=== PATIENT | female | born 1955 | race Caucasian/White ===

== ENCOUNTER → 2016-11-02 | Outpatient (CLI) | payer BC ==
[~2016-11-02] MED LIST: ACET-749 PO; ALBUAER2 INH; ATOR-22 PO; ATOR10TA82 PO; ATV/1 PO; BUDE180I INH; CETI10TA84 PO; CHOL100010 PO; CLB200 PO; CYAN100T PO; CYAN500T13 PO; CYCL15CA PO; GABA1CAP PO; GLUC250C PO; KETO1AER EXT; KETO2SHA TOP; LEVO112T4 PO; LEVO125T5 PO; LUTE15CA PO; LUTE6CAP9 PO; MIRT45TA PO; MIRT45TA3 PO; MISCCAP80 PO; MONT1TAB3 PO; NF656; NF656 EXT; OMEG1CAP81 PO; RMRS/15 PO; SNG10 PO; TURM1CAP4 PO; VITAMIN D PO; VNTHFA/IN INH
--- NOTE | 2016-11-03 12:48 | MAMMOGRAPHY REPORT ---
BILATERAL DIGITAL SCREENING MAMMOGRAM TOMOSYNTHESIS WITH CAD: 11/02/2016 CLINICAL HISTORY: Routine screening. Patient has no complaints. TECHNIQUE: Breast tomosynthesis in addition to standard 2D mammography was performed. Current study was also evaluated with a Computer Aided Detection (CAD) system. COMPARISON: Comparison is made to exams dated: 10/21/2015 mammogram, 10/12/2013 mammogram, 10/15/2014 mammogram, 08/11/2012 mammogram, 10/06/2011 ultrasound, and 10/06/2011 mammogram - [facility]. BREAST COMPOSITION: The tissue of both breasts is heterogeneously dense, which may obscure small ma sses. FINDINGS: There is a stable benign rim calcification within the right breast. No new suspicious mas s, architectural distortion or cluster of microcalcifications is seen. IMPRESSION: ACR BI-RADS CATEGORY 1: NEGATIVE There is no mammographic evidence of malignancy. A 1 year screening mammogram is recommended. The p atient will receive written notification of the results. Approximately 10% of breast cancers are not detected with mammography. A negative mammographic repor t should not delay biopsy if a clinically suggestive mass is present. Zabrina Baker M.D. ay/:11/02/2016 17:30:21 Dental Receptionist: Amber VILLALOBOS(R)(M), [facility] letter sent: Normal 1/2 BI-RADS Code: ACR BI-RADS Category 1: Negative
== END | disposition home or self-care (01) ==
LOC: C.MAMM 15:06
PROVIDERS: ATTEND Obstetrics & Gynecology
DX: Z12.31 Encounter for screening mammogram for malignant neoplasm of breast (principal)

== ENCOUNTER → 2017-01-27 | Outpatient (CLI) | payer BC ==
[~2017-01-27] MED LIST changes: -ALBUAER2 INH; -ATOR10TA82 PO; -ATV/1 PO; -CHOL100010 PO; -CYAN100T PO; -KETO2SHA TOP; -LEVO112T4 PO; +LEVO125T4 PO; -LEVO125T5 PO; -LUTE6CAP9 PO; -MIRT45TA3 PO; -NF656; -SNG10 PO
--- NOTE | 2017-01-27 12:54 | DIAGNOSTIC IMAGING REPORT ---
C-SPINE ROUTINE 4 OR 5 VIEWS CLINICAL HISTORY: Right arm numbness. COMPARISON STUDY: Cervical spine radiographs June 16, 2016. FINDINGS: Reversal of normal cervical lordosis is unchanged exam of June 16, 2016. A C5-C6 posterior fusion is unchanged. Hardware is intact. There is no acute cervical spine fracture. Craniocervical junction is intact. There is moderate multilevel degenerative disc disease and facet arthrosis. IMPRESSION: 1. No cervical spine fracture. 2. No change in appearance of the cervical spine since exam June 16, 2016 status post C5-C6 posterior fusion. Electronically signed by: Dario Landin M.D. 01/27/2017 12:52 PM Dictated Date/Time: 01/27/2017 12:47 PM
== END | disposition home or self-care (01) ==
LOC: C.LAB 12:15
PROVIDERS: ATTEND Internal Medicine
DX: R20.2 Paresthesia of skin (principal); Z98.1 Arthrodesis status

== ENCOUNTER → 2017-02-02 | Day surgery (SDC) | payer BC ==
[2017-01-21 10:24] VITALS: BMI 26.0
[~2017-02-02] VITALS: Ht 170.2 cm; Wt 76.8 kg
[~2017-02-02] MED LIST changes: +LIDOCAINE HCL 2% 2 ML VIAL (20MG/ML) ONE; +PROPOFOL IV EMULSION 10 MG/ML 20 ML VIAL IV ONE; +SODIUM CHLORIDE 0.9% 500ML 500 ML IV ONE
[2017-02-02 13:50] VITALS: Ht 170.2 cm; Wt 76.8 kg
--- NOTE | 2017-02-02 14:06 | Endo History and Physical ---
History & Physical Date of Service: Feb 02, 2017. Chief Complaint: Screening Referring Physician: Dr. Montgomery History of Present Illness 61 yo CF who presents for screening colonoscopy. Past Surgical History Hx Cardiac Surgery: No Hx Internal Defibrillator: No Hx Pacemaker: No Hx Abdominal Surgery: Yes (RAYA BSO, LAP BRET, LAPAROSCOPY X 4) Hx of Implantable Prosthesis: No Hx Post-Op Nausea and Vomiting: Yes Hx Cancer Surgery: Yes (EXCISION OF MELANOMA X2) Hx Thoracic Surgery: No Hx Orthopedic: Yes (CERVICAL FUSION) Hx Urinary Tract Surgery: No Family History Colon CA Social History Smoking Status: Never Smoker Hx Substance Use: Yes (SEE MED REC) Hx Alcohol Use: Yes (RARELY) Allergies Coded Allergies: Adhesives (Verified Allergy, Unknown, RASH, 01/21/17) Animal Dander (Verified Allergy, Unknown, HAY FEVER, 01/21/17) Duck Feathers (Verified Allergy, Unknown, HAY FEVER WITH DOWN FILLED ITEMS , 01/21/17) Dust (Verified Allergy, Unknown, HAY FEVER, 01/21/17) Molds and Smuts (Verified Allergy, Unknown, HAY FEVER, 12/11/15) Nickel (Verified Allergy, Unknown, RASH, 01/21/17) Penicillins (Verified Allergy, Unknown, RASH, 01/21/17) Clarithromycin (Verified Adverse Reaction, Unknown, GI UPSET, 01/21/17) Current Medications Reported Home Medications Medications Dose Route/Sig Max Daily Dose Days Date Category Ketodan (Ketoconazole (Topical)) 2 % Aer 1 Dose EXT DIRECTED PRN 01/21/17 Reported Lidoderm Patch 5% (Lidocaine) 1 Ea Tdsy 1 Dose EXT DIRECTED PRN 01/21/17 Reported Ventolin Hfa (Albuterol) 200 Puffs/19215 Mcg Aers 2-4 Puffs INH Q6H PRN 01/21/17 Reported Pulmicort Flexhaler (Budesonide (Inhalation)) 180 Mcg/Act Inh 2 Puffs INH BID PRN 30 01/21/17 Reported Tylenol W/Codeine #3 (Acetaminophen/Codeine Phosphate) 300 Mg/30 Mg Tab 1 Tab PO HS PRN 01/21/17 Reported Lipitor (Atorvastatin Calcium) 20 Mg Tab 20 Mg PO QPM 01/21/17 Reported Levothyroxine Sodium 125 Mcg Tab 1 Tab PO QPM 90 01/21/17 Reported Remeron (Mirtazapine) 45 Mg Tab 1 Tab PO HS 30 01/21/17 Reported Zyrtec (Cetirizine HCl) 10 Mg Tab 10 Mg PO QPM 01/21/17 Reported Singulair (Montelukast Sodium) 10 Mg Tab 10 Mg PO QPM 01/21/17 Reported Probiotic (Probiotic Product) 1 Cap Cap 1 Cap PO QAM 01/21/17 Reported [Vitamin D] 1 Tab PO 3XWK 01/21/17 Reported Vitamin B12 500MCG (Cyanocobalamin) 500 Mcg Tab 500 Mcg PO QAM 01/21/17 Reported Lutein (Lutein-Zeaxanthin) 1 Cap Cap 1 Cap PO QAM 01/21/17 Reported Turmeric (Turmeric (Curcuma Longa)) 500 Mg Cap 1 Cap PO QAM 01/21/17 Reported Fish Oil ([place]-3 Fatty Acids) 1 Cap Cap 1 Cap PO QAM 01/21/17 Reported Amrix (Cyclobenzaprine Hcl) 15 Mg Cap 1 Cap PO QPM 01/21/17 Reported Glucosamine/Chondroitin (Glucosamine-Chondroitin) 1 Cap Cap 1 Cap PO QAM 12/04/15 Reported Neurontin (Gabapentin) 100 Mg Cap 100 Mg PO TID 04/22/14 Reported Celebrex * (Celecoxib) 200 Mg Cap 200 Mg PO QAM 01/07/07 Reported Vital Signs Weight (Kilograms): 76.82 Height (Feet): 5 Height (Inches): 7 Date Time Temp Pulse Resp B/P (MAP) Pulse Ox O2 Delivery O2 Flow Rate FiO2 02/02/17 13:55 36.6 85 20 123/73 (90) 100 Room Air Physical Exam General Appearance: WD/WN, no apparent distress Respiratory/Chest: Auscultation: breath sounds normal Cardiovascular: Heart Auscultation: RRR Abdomen: Bowel Sounds: normal Inspection & Palpation: soft, non-distended, no tenderness, guarding & rebound Assessment and Plan Assessment: 61 yo CF who presents for screening colonoscopy. Plan: Proceed with colonoscopy.
--- NOTE | 2017-02-02 14:45 | GI REPORT ---
Procedure Date: 02/02/2017 2:20 PM Procedure: Colonoscopy Indications: Screening for colorectal malignant neoplasm Medicines: Monitored Anesthesia Care Complications: No immediate complications. Estimated Blood Loss: Estimated blood loss: none. Procedure: Pre-Anesthesia Assessment: - Prior to the procedure, a History and Physical was performed, and patient medications and allergies were reviewed. The patient's tolerance of previous anesthesia was also reviewed. The risks and benefits of the procedure and the sedation options and risks were discussed with the patient. All questions were answered, and informed consent was obtained. Prior Anticoagulants: The patient has taken no previous anticoagulant or antiplatelet agents. ASA Grade Assessment: II - A patient with mild systemic disease. After reviewing the risks and benefits, the patient was deemed in satisfactory condition to undergo the procedure. After I obtained informed consent, the scope was passed under direct vision. Throughout the procedure, the patient's blood pressure, pulse, and oxygen saturations were monitored continuously. The Scope was introduced through the anus and advanced to the terminal ileum. The colonoscopy was performed without difficulty. The patient tolerated the procedure well. The quality of the bowel preparation was good. The terminal ileum, ileocecal valve, appendiceal orifice, and rectum were photographed. Findings: The colon (entire examined portion) appeared normal. Impression: - The entire examined colon is normal. - No specimens collected. Recommendation: - Resume previous diet. - Continue present medications. - Repeat colonoscopy in 10 years for surveillance. - Return to primary care physician as previously scheduled. Franklyn Solo DO 02/02/2017 2:44:57 PM This report has been signed electronically. Note Initiated On: 02/02/2017 2:20 PM I attest to the content of the Intraoperative Record and orders documented therein, exceptions below
--- NOTE | 2017-02-02 14:47 | Discharge Instructions ---
Endoscopy Patient Instructions Date / Procedure(s) Performed Feb 02, 2017. Colonoscopy Allergy Information Coded Allergies: Adhesives (Verified Allergy, Unknown, RASH, 01/21/17) Animal Dander (Verified Allergy, Unknown, HAY FEVER, 01/21/17) Duck Feathers (Verified Allergy, Unknown, HAY FEVER WITH DOWN FILLED ITEMS , 01/21/17) Dust (Verified Allergy, Unknown, HAY FEVER, 01/21/17) Molds and Smuts (Verified Allergy, Unknown, HAY FEVER, 12/11/15) Nickel (Verified Allergy, Unknown, RASH, 01/21/17) Penicillins (Verified Allergy, Unknown, RASH, 01/21/17) Clarithromycin (Verified Adverse Reaction, Unknown, GI UPSET, 01/21/17) Discharge Date / Findings Feb 02, 2017. Normal colonoscopy Medication Instructions OK to resume all medications today as prescribed Reported Home Medications Medications Dose Route/Sig Max Daily Dose Days Date Category Mirtazapine 15 Mg Annalisa 30 PO DAILY 02/02/17 Reported Ketodan (Ketoconazole (Topical)) 2 % Aer 1 Dose EXT DIRECTED PRN 01/21/17 Reported Lidoderm Patch 5% (Lidocaine) 1 Ea Tdsy 1 Dose EXT DIRECTED PRN 01/21/17 Reported Ventolin Hfa (Albuterol) 200 Puffs/22390 Mcg Aers 2-4 Puffs INH Q6H PRN 01/21/17 Reported Pulmicort Flexhaler (Budesonide (Inhalation)) 180 Mcg/Act Inh 2 Puffs INH BID PRN 30 01/21/17 Reported Tylenol W/Codeine #3 (Acetaminophen/Codeine Phosphate) 300 Mg/30 Mg Tab 1 Tab PO HS PRN 01/21/17 Reported Lipitor (Atorvastatin Calcium) 20 Mg Tab 20 Mg PO QPM 01/21/17 Reported Levothyroxine Sodium 125 Mcg Tab 1 Tab PO QPM 90 01/21/17 Reported Zyrtec (Cetirizine HCl) 10 Mg Tab 10 Mg PO QPM 01/21/17 Reported Singulair (Montelukast Sodium) 10 Mg Tab 10 Mg PO QPM 01/21/17 Reported Probiotic (Probiotic Product) 1 Cap Cap 1 Cap PO QAM 01/21/17 Reported [Vitamin D] 1 Tab PO 3XWK 01/21/17 Reported Vitamin B12 500MCG (Cyanocobalamin) 500 Mcg Tab 500 Mcg PO QAM 01/21/17 Reported Lutein (Lutein-Zeaxanthin) 1 Cap Cap 1 Cap PO QAM 01/21/17 Reported Turmeric (Turmeric (Curcuma Longa)) 500 Mg Cap 1 Cap PO QAM 01/21/17 Reported Fish Oil ([place]-3 Fatty Acids) 1 Cap Cap 1 Cap PO QAM 01/21/17 Reported Amrix (Cyclobenzaprine Hcl) 15 Mg Cap 1 Cap PO QPM 01/21/17 Reported Glucosamine/Chondroitin (Glucosamine-Chondroitin) 1 Cap Cap 1 Cap PO QAM 12/04/15 Reported Neurontin (Gabapentin) 100 Mg Cap 100 Mg PO TID 04/22/14 Reported Celebrex * (Celecoxib) 200 Mg Cap 200 Mg PO QAM 01/07/07 Reported Provider Instructions Activity Restrictions - No exercising or heavy lifting for 24 hours. - Do not drink alcohol the day of the procedure. - Do not drive a car or operate machinery until the day after the procedure. - Do not make any important decisions or sign important papers in 24 hours after the procedure. Following Day: - Return to full activity which may include returning to work/school. Diet Start your diet with liquids and light foods (jello, soup, juice, toast). Then eat your usual diet if not nauseated. Treatment For Common After Affects For mild abdominal pain, bloating, or excessive gas: - Rest - Eat lightly - Lie on right side Follow-Up Information Follow-up with Dr. Montgomery as scheduled Anesthesia Information What You Should Know You have had a procedure that required some medicine to reduce anxiety and discomfort. This treatment is called moderate sedation. After receiving the treatment, you may be sleepy, but you will be able to breathe on your own. The effects of the treatment may last for several hours. Follow these instructions along with Activity/Diet recommendations noted above: * Do NOT do anything where dizziness or clumsiness would be dangerous. * Rest quietly at home today, then you can be up and about tomorrow. * Have a responsible person stay with you the rest of today. * You may have had an I.V. today. If so, you may take the dressing off later today. Recommendations Call your doctor if: * Trouble breathing * Continuous vomiting for more than 24 hours * Temperature above 101 degrees * Severe abdominal pain or bloating * Pain not relieved by pain medicine ordered * There is increased drainage or redness from any incision * A large amount of rectal bleeding greater than 2-3 tablespoons. (If you had a polyp/s removed or have hemorrhoids, a small amount of blood - from the rectum is to be expected.) * You have any unanswered questions or concerns. IN THE EVENT OF A SERIOUS EMERGENCY, GO TO THE NEAREST EMERGENCY ROOM Your discharge instructions were prepared by provider Franklyn Solo. Patient Instructions Signature Page Kellie Choi Patient (or Guardian) Signature/Date: I have read and understand the instructions given to me by my caregivers. Caregiver/RN/Doctor Signature/Date: The above-named patient and/or guardian has received patient instructions on this date. + Original Patient Signature Page (only) stays with chart. Please make copy for patient.
--- NOTE | 2017-02-02 14:53 | Anesthesiology Progress Note ---
Anesthesia Post Op Note Date & Time Feb 02, 2017 at 14:53 Vital Signs Pain Intensity: 0 Vital Signs Past 12 Hours Date Time Temp Pulse Resp B/P (MAP) Pulse Ox O2 Delivery O2 Flow Rate FiO2 02/02/17 13:55 36.6 85 20 123/73 (90) 100 Room Air Notes Mental Status: alert / awake / arousable, participated in evaluation Pt Amnestic to Procedure: Yes Nausea / Vomiting: adequately controlled Pain: adequately controlled Airway Patency, RR, SpO2: stable & adequate BP & HR: stable & adequate Hydration State: stable & adequate Anesthetic Complications: no major complications apparent
[2017-02-02 15:14] VITALS: BP 149/70; PULSE 83; O2SAT 99
== END | disposition home or self-care (01) ==
LOC: C.GI 13:26
PROVIDERS: ATTEND Internal Medicine
DX: Z12.11 Encounter for screening for malignant neoplasm of colon (principal); Z80.0 Family history of malignant neoplasm of digestive organs; Z79.899 Other long term (current) drug therapy

== ENCOUNTER → 2017-02-09 | Outpatient (CLI) | payer BC ==
[~2017-02-09] MED LIST changes: -LIDOCAINE HCL 2% 2 ML VIAL (20MG/ML) ONE; -MIRT45TA PO; -PROPOFOL IV EMULSION 10 MG/ML 20 ML VIAL IV ONE; -SODIUM CHLORIDE 0.9% 500ML 500 ML IV ONE
== END | disposition home or self-care (01) ==
LOC: C.PAPS 08:49
PROVIDERS: ATTEND Obstetrics & Gynecology
DX: Z01.419 Encounter for gynecological examination (general) (routine) without abnormal findings (principal); N95.2 Postmenopausal atrophic vaginitis; Z87.42 Personal history of other diseases of the female genital tract

== ENCOUNTER → 2017-06-29 | Outpatient (CLI) | payer BC ==
[~2017-06-29] MED LIST changes: -LEVO125T4 PO; +LEVO125T5 PO
--- NOTE | 2017-06-29 09:53 | DIAGNOSTIC IMAGING REPORT ---
THORACIC SPINE 3 VIEWS ROUTINE CLINICAL HISTORY: Mid thoracic back pain. COMPARISON STUDY: Chest CT September 09, 2006. FINDINGS: Alignment of the thoracic spine is anatomic. There is mild anterior wedging of the T6 vertebral body which is chronic. This is similar to exam of September 09, 2006. Disc spaces are preserved. There is mild anterior osteophytosis. Postoperative findings within the cervical spine are incidentally noted. IMPRESSION: 1. No acute thoracic spine fracture or subluxation. 2. Mild anterior wedging of the T6 vertebral body which is unchanged since CT of September 09, 2016. 3. Mild multilevel degenerative disc disease of the thoracic spine. Electronically signed by: Dario Landin M.D. 06/29/2017 9:51 AM Dictated Date/Time: 06/29/2017 9:47 AM
--- NOTE | 2017-06-29 09:57 | DIAGNOSTIC IMAGING REPORT ---
L RIBS UNILATERAL WITH PA CHEST CLINICAL HISTORY: Thoracic back pain. Sleep disturbance. COMPARISON STUDY: Chest CT September 09, 2006. FINDINGS: Lung volumes are normal. Lungs are clear. There is no pneumothorax or pleural effusion. Pulmonary vascularity is normal. Cardiomediastinal silhouette is normal. No acute left-sided rib fractures are identified. There are cholecystectomy clips and postoperative findings within the cervical spine. IMPRESSION: No acute cardiopulmonary findings. No pneumothorax. No acute left rib fractures. Electronically signed by: Dario Landin M.D. 06/29/2017 9:56 AM Dictated Date/Time: 06/29/2017 9:53 AM
== END | disposition home or self-care (01) ==
LOC: C.RAD1850 09:23
PROVIDERS: ATTEND Internal Medicine
DX: M54.6 Pain in thoracic spine (principal); G47.9 Sleep disorder, unspecified

== ENCOUNTER → 2017-11-03 | Outpatient (CLI) | payer BC, OTHER ==
[~2017-11-03] MED LIST changes: +GABA100C13 PO; -GABA1CAP PO
== END | disposition home or self-care (01) ==
LOC: C.RDSM 17:47
PROVIDERS: ATTEND Family Medicine
DX: S83.242A Other tear of medial meniscus, current injury, left knee, initial encounter (principal); M25.521 Pain in right elbow; M25.562 Pain in left knee

== ENCOUNTER → 2017-11-03 | Outpatient (CLI) | payer OTHER ==
--- NOTE | 2017-11-04 07:45 | MAMMOGRAPHY REPORT ---
BILATERAL DIGITAL SCREENING MAMMOGRAM TOMOSYNTHESIS WITH CAD: 11/03/2017 CLINICAL HISTORY: Routine screening. Patient has no complaints. TECHNIQUE: Breast tomosynthesis in addition to standard 2D mammography was performed. Current study was also evaluated with a Computer Aided Detection (CAD) system. COMPARISON: Comparison is made to exams dated: 11/02/2016 mammogram, 10/21/2015 mammogram, 10/15/2014 m ammogram, 10/12/2013 mammogram, 08/11/2012 mammogram, and 10/06/2011 ultrasound - [facility]. BREAST COMPOSITION: The tissue of both breasts is heterogeneously dense, which may obscure small mas ses. FINDINGS: No suspicious masses, calcifications, or areas of architectural distortion are noted in ei ther breast. There has been no significant interval change compared to prior exams. IMPRESSION: ACR BI-RADS CATEGORY 1: NEGATIVE There is no mammographic evidence of malignancy. A 1 year screening mammogram is recommended. The pa tient will receive written notification of the results. Approximately 10% of breast cancers are not detected with mammography. A negative mammographic report should not delay biopsy if a clinically suggestive mass is present. Amber Maguire M.D. ah/:11/03/2017 15:33:21 Dinking Machine Operator: Amber VILLALOBOS(R)(M), [facility] letter sent: Normal 1/2 BI-RADS Code: ACR BI-RADS Category 1: Negative
== END | disposition home or self-care (01) ==
LOC: C.MAMM 15:00
PROVIDERS: ATTEND Obstetrics & Gynecology
DX: Z12.31 Encounter for screening mammogram for malignant neoplasm of breast (principal)